=== PATIENT | male | born 1945 | race Native Hawaiian/Other Pacific Islander ===

== ENCOUNTER 2018-01-16 14:07 | Inpatient (IN) | payer MEDICARE, MEDICAID ==
[2018-01-16 14:52] LABS: BASO # 0.1 K/uL (0.0-0.2); BASO % 0.9 % (0.0-2.0); EOS # 0.9 K/uL (0.0-0.7); EOS % 8.4 % (0.0-4.0); HEMOGLOBIN 15.2 g/dL (12.0-18.0); LYMPH # 2.5 K/uL (1.0-4.3); LYMPH % 22.3 % (20.0-40.0); MEAN CELL VOLUME 90.3 fL (80.0-94.0); MEAN CORPUSCULAR HEMOGLOBIN 30.3 pg (27.0-31.0); MEAN CORPUSCULAR HGB CONC 33.5 g/dL (33.0-37.0); MONO # 0.9 K/uL (0.0-0.8); MONO % 7.7 % (0.0-10.0); NEUT # 6.8 K/uL (1.8-7.0); NEUT % 60.7 % (50.0-75.0); RBC 5.01 Mil/uL (4.40-5.90); RED CELL DISTRIBUTION WIDTH 13.4 % (11.5-14.5); WHITE BLOOD COUNT 11.2 K/uL (4.8-10.8)
[2018-01-16 15:11] LABS: ALB/GLOB RATIO 1.3 (1.0-2.1); ALBUMIN 4.1 g/dL (3.5-5.0); ALT/SGPT 29 U/L (21-72); AST/SGOT 22 U/L (17-59); BLOOD UREA NITROGEN 12 mg/dL (9-20); CALCIUM 9.2 mg/dl (8.6-10.4); GFR NON-AFRICAN AMERICAN > 60
--- NOTE | 2018-01-16 15:17 | C.PDOC ---
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 Trinh, has been having intermittent chest pain and exertional dyspnea/fatigue for the past 1 month. Patient is s/p recent outpatient stress test that was abnormal. He denies fever, abdominal pain, nausea/vomiting/diarrhea, dysuria, palpitations, headache, dizziness, visual changes. Pmhx of atrial fibrillation, HTN, hyperlpiidemia, COPD. Time Seen by Provider: 01/16/18 14:14 Chief Complaint (Nursing): Shortness Of Breath History Per: Patient, Family History/Exam Limitations: language barrier Onset/Duration Of Symptoms: Persistent Current Symptoms Are (Timing): Still Present Quality: Pressure, "Pain" Exacerbating Factor(s): Exertion Current Respiratory Medications: See Home Med List Severity: Mild Associated Symptoms: denies: Fever, Chills, Productive Cough, Dizziness Past Medical History Reviewed: Historical Data, Nursing Documentation, Vital Signs Vital Signs: Last Vital Signs Temp 97.4 F L 01/16/18 14:13 Pulse 106 H 01/16/18 14:13 Resp 26 H 01/16/18 14:33 BP 169/106 H 01/16/18 14:13 Pulse Ox 97 01/16/18 14:13 - Medical History PMH: Atrial Fibrillation, COPD, HTN, Hypercholesterolemia Family History: States: No Known Family Hx - Social History Hx Alcohol Use: No Hx Substance Use: No - Immunization History Hx Tetanus Toxoid Vaccination: No Hx Influenza Vaccination: Yes Hx Pneumococcal Vaccination: No Review Of Systems Constitutional: Positive for: Weakness (generalized). Negative for: Fever, Chills Cardiovascular: Positive for: Chest Pain. Negative for: Palpitations Respiratory: Positive for: Shortness of Breath, SOB with Excertion. Negative for: Cough Gastrointestinal: Negative for: Nausea, Vomiting, Abdominal Pain, Diarrhea Skin: Negative for: Rash Neurological: Negative for: Weakness, Numbness, Incoordination, Change in Speech, Headache, Dizziness Physical Exam - Physical Exam Appears: Well, Non-toxic, No Acute Distress, Other (speaking in full sentences ) Skin: Normal Color, Warm, Dry Eye(s): bilateral: Normal Inspection, PERRL, EOMI Oral Mucosa: Moist Cardiovascular: Rhythm Regular Respiratory: Rales (B/L bases R>L), No Rhonchi, No Wheezing Gastrointestinal/Abdominal: Normal Exam, Bowel Sounds, Soft, No Tenderness Extremity: Pedal Edema (+1 pitting edema B/L LEs), No Calf Tenderness Pulses: Left Dorsalis Pedis: Normal, Right Dorsalis Pedis: Normal Neurological/Psych: Oriented x3, Normal Speech, Normal Cognition ED Course And Treatment - Laboratory Results Result Diagrams: 01/19/18 07:23 01/19/18 07:23 ECG: Interpreted By Me, Viewed By Me (atrial fibrillation 83 bpm, normal axis, LVH, mild ST depressions II, III, aVF, V5-V6) ECG Interpretation: Abnormal O2 Sat by Pulse Oximetry: 97 (RA) Pulse Ox Interpretation: Normal - Radiology CXR: Interpreted by Me, Viewed By Me (no infiltrates, (+) B/L nodules) Progress Note: Blood work, EKG, CXR ordered and reviewed. Patient given PO ASA, IV Lasix, PO Cardizem (for mildly rapid A fib). CT chest ordered due to multiple lung nodules seen on CXR. - Physician Consult Information Physician Contacted: Lisset Schwartz Outcome Of Conversation: Discussed patient with hospitalist, agrees with admission to her service for chest pain, dyspnea, orthopnea, CHF exacerbation, abnormal stress test., lung nodules. 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 Critical Care Time - Critical Care Note Total Time (in mins): 35 Documented critical care: time excludes all time spent performing seperately billable procedures. Disposition - Disposition Disposition: HOSPITALIZED Disposition Time: 15:39 Condition: STABLE - Clinical Impression Clinical Impression: Acute exacerbation of CHF (congestive heart failure), Chest pain, Dyspnea, Orthopnea, Abnormal stress test, Lung nodules, Dyspnea Decision To Admit - Pt Status Changed To: Hospital Disposition Of: Inpatient - Admit Certification Admit to Inpatient:: After my assessment, the patient will require hospitalization for at least two midnights. This is because of the severity of symptoms shown, intensity of services needed, and/or the medical risk in this patient being treated as an outpatient. - InPatient: Physician Admission Certification: I certify that this patient requires 2 or more midnights of care for the following reason:: see notes - . Bed Request Type: Telemetry Admitting Physician: Lisset Schwartz Patient Diagnosis: Acute exacerbation of CHF (congestive heart failure), Chest pain, Dyspnea, Orthopnea, Abnormal stress test, Lung nodules, Dyspnea
[2018-01-16 15:24] LABS: B-TYPE NATRIURETIC PEPTIDE 1780 pg/mL (0-900); CK-MB 0.66 ng/mL (0.0-3.38)
[2018-01-16 15:26] LABS: INR 1.1; PROTHROMBIN TIME 11.7 SECONDS (9.7-12.2)
--- NOTE | 2018-01-16 17:10 | CP.PCM.HP ---
<Paulette Duvall - Last Filed: 01/16/18 19:39> History of Present Illness - History of Present Illness History of Present Illness: Admission H&P - Dr. Schwartz's Service HPI: 72 y/o male with PMHx of Afib, HTN, COPD, gout, PAD presents to the ED upon referral from Dr. Trinh after abnormal outpatient pharm stress test. ED records state he has been having exertional chest pain for 1 month, but upon questioning him, he said the pain has been present for 4 months. Patient states there is pain on both sides of his chest after 15 mins of walking that comes with palpitations. He walks regularly to go shopping and it is something that has been bothersome although it completely resolves after he sits down to rest. Denies associated diaphoresis when the pain comes. The pain is <5/10 (not much). Patient is unable to point where the pain is with one finger and motions to his chest with his whole hand. Denies radiating pain to back, arms, or neck. Patient has no leg pain/swelling, nausea/vomiting, diarrhea, recent travels, sick contacts. Of note, patient has been having headaches during the day of unknown bouts of time for the past month or so. He does not take special medications to relieve headaches; just his baby aspirin. But right now sitting in the emergency room he feels okay. 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 Patient accompanied by and teenage son. Their family speaks [place]. Only the son could speak Surinamese. Meds: theophilline 24 200/24h ER, colchicine 0.6 mg PO, omeprazole 40 mg PO, aspirin 81 mg, lisinopril 10 mg Allergies: NKDA PMD: Garethr Target Protection Specialist: Ziggy Present on Admission - Present on Admission Any Indicators Present on Admission: Yes Review of Systems - Constitutional Constitutional: As Per HPI Past Patient History - Past Social History Smoking Status: Former Smoker - CARDIAC Hx Atrial Fibrillation: Yes Hx Hypercholesterolemia: Yes Hx Hypertension: Yes - PULMONARY Hx Chronic Obstructive Pulmonary Disease (COPD): Yes - PSYCHIATRIC Hx Substance Use: No - SURGICAL HISTORY Hx Surgeries: No - ANESTHESIA Hx Anesthesia: No Hx Anesthesia Reactions: No Meds Allergies/Adverse Reactions: Allergies Allergy/AdvReac Type Severity Reaction Status Date / Time No Known Allergies Allergy Unverified 01/16/18 14:18 Physical Exam - Constitutional Appears: Well Additional comments: Elderly male resting in bed in no acute distress. - Head Exam Head Exam: ATRAUMATIC, NORMAL INSPECTION - Eye Exam Eye Exam: EOMI, Normal appearance Pupil Exam: NORMAL ACCOMODATION - ENT Exam ENT Exam: Mucous Membranes Moist, Normal Exam - Neck Exam Neck exam: Positive for: Normal Inspection. Negative for: Lymphadenopathy - Respiratory Exam Respiratory Exam: NORMAL BREATHING PATTERN Additional comments: faint crackles LLL - Cardiovascular Exam Cardiovascular Exam: Irregular Rhythm Additional comments: Chest pain is NOT reproducible upon palpation - GI/Abdominal Exam GI & Abdominal Exam: Normal Bowel Sounds, Soft. absent: Tenderness - Extremities Exam Extremities exam: Positive for: calf tenderness, normal inspection. Negative for: pedal edema, tenderness - Back Exam Back exam: NORMAL INSPECTION - Neurological Exam Neurological exam: Alert, Oriented x3 - Psychiatric Exam Psychiatric exam: Normal Affect, Normal Mood - Skin Skin Exam: Dry, Intact, Normal Color, Warm Results - Vital Signs Recent Vital Signs: Last Vital Signs Temp 98 F 01/16/18 15:51 Pulse 96 H 01/16/18 15:51 Resp 24 01/16/18 15:51 BP 160/106 H 01/16/18 15:51 Pulse Ox 98 01/16/18 15:51 - Labs Result Diagrams: 01/16/18 14:45 01/16/18 14:45 Labs: Laboratory Results - last 24 hr 01/16/18 01/16/18 01/16/18 14:45 14:45 14:45 WBC 11.2 H RBC 5.01 Hgb 15.2 Hct 45.3 MCV 90.3 MCH 30.3 MCHC 33.5 RDW 13.4 Plt Count 168 MPV 9.0 Neut % (Auto) 60.7 Lymph % (Auto) 22.3 [place] % (Auto) 7.7 Eos % (Auto) 8.4 H Baso % (Auto) 0.9 Neut # (Auto) 6.8 Lymph # (Auto) 2.5 [place] # (Auto) 0.9 H Eos # (Auto) 0.9 H Baso # (Auto) 0.1 PT 11.7 INR 1.1 APTT 36 H Sodium 142 Potassium 4.3 Chloride 104 Carbon Dioxide 27 Anion Gap 15 BUN 12 Creatinine 0.9 Est GFR ( Amer) > 60 Est GFR (Non-Af Amer) > 60 Random Glucose 79 Calcium 9.2 Total Bilirubin 0.6 AST 22 ALT 29 Alkaline Phosphatase 92 Total Creatine Kinase 50 L CK-MB (Mass) 0.66 Troponin I 0.0200 NT-Pro-B Natriuret Pep 1780 H Total Protein 7.2 Albumin 4.1 Globulin 3.1 Albumin/Globulin Ratio 1.3 Assessment & Plan - Assessment and Plan (Free Text) Assessment: 72 y/o male with PMHx of Afib, HTN, HLD, COPD, gout, and PAD presented to the ED due to abnormal stress test by Dr. Trinh. Patient is currently on med tele and hemodynamically stable. Acute coronary syndrome -ROMIs 9pm tonight and 4am 01/17 - trend trops and EKG then -pharm stress test abnormal (EF of 31% and recommends ECHO) -ECHO tomorrow AM on 01/17 -cardiac cath 3:30pm on 01/17 -NPO after breakfast 01/17 -tele monitor -aspirin 81 mg PO qd -stop lisinopril 2/2 abn'l EKG -proBNP, A1c, TSH, FT4 -lovenox 40 mg sq daily -cardio Dr. Trinh on consult Afib -CHADS: 3, HASBLED: 2 -will hold AC until after cath; d/w Dr. Trinh -start cardizem 30 mg PO QID (hold SBP < 100, HR < 60) -ECHO tomorrow AM on 01/17 -cardio Dr. Trinh on consult COPD -patient long time smoker and currently not on home meds for COPD -Spiriva 18 mcg inh qd -duonebs PRN Abnormal CXR -CT chest w/o contrast -pulm Dr. Gallego on consult PAD -aspirin 81 mg PO qd -SCDs contraindicated Gout -colchicine 0.3 mg PO qd HTN -patient with recent hx of headache; please monitor BP. BP not meeting HTN urgency/emergency criteria yet. Pending new meds for HTN mgmt as below: -start cardizem 30 mg PO QID -start losartan 50 mg PO qd Lipid disorder -lipid panel Ppx: lovenox 40 mg sq SCDs contrindicated PT/OT eval ordered Code: FULL *POC: Kalpana Zelaya () - only speaks [place]. But she can call Thy who speaks Sur[place]e at [phone]. dispo: pt with abnormal stress test with chesp pain and extensive cardiac risk factors for cardiac cath with cardiology case discussed with Dr. Efren Duvall, PGY-1 <Lisset Schwartz V - Last Filed: 01/18/18 20:07> Results - Vital Signs Recent Vital Signs: Last Vital Signs Temp 97.8 F 01/18/18 15:00 Pulse 85 01/18/18 17:58 Resp 20 01/18/18 15:00 BP 135/70 01/18/18 15:00 Pulse Ox 97 01/18/18 15:00 - Labs Result Diagrams: 01/18/18 08:39 01/18/18 08:39 Labs: Laboratory Results - last 24 hr 01/18/18 01/18/18 08:39 08:39 WBC 10.3 RBC 5.00 Hgb 15.3 Hct 45.6 MCV 91.2 MCH 30.7 MCHC 33.6 RDW 13.8 Plt Count 163 MPV 9.4 Sodium 144 Potassium 3.8 Chloride 107 Carbon Dioxide 26 Anion Gap 15 BUN 14 Creatinine 1.0 Est GFR ( Amer) > 60 Est GFR (Non-Af Amer) > 60 Random Glucose 103 Calcium 9.5 Phosphorus 3.7 Magnesium 1.9 Attending/Attestation - Attestation I have personally seen and examined this patient.: Yes I have fully participated in the care of the patient.: Yes I have reviewed all pertinent clinical information: Yes Notes (Text): This is late computer entry for 01/16/18. Patient seen, examined and case discussed with medical center manager. Hospitalist service covering for Dr. Quesada while he is away. patient with complaints of ongoing chest pain for the past 4 months, had an abnormal stress test with cardaic risk factors to come to the emergency room. Patient is mainly moroccan/cantonease/nigerien; resident is [place] speaker of cantonese able to elicted history. Admitting orders discussed with resident at time of admission. Discussed with cardiology, patient going for cardiac cath tomorrow, echo, aspirin, dvt ppx Lovenox; chemical anticoagulation for atrial fibrillation will be determine post cath. Patient noted to have abnormal chest xray; ordered for ct angio; provided gentle IV hydration post ct chest to prevent contrast induced nephropathy in light of cardiac cath. Assessment/Plan 72 y/o male with PMHx of Afib, HTN, HLD, COPD, gout, and PAD presented to the ED due to abnormal stress test by Dr. Trinh. Acute coronary syndrome Abnormal Stress Test Assessment/Plan cardiac risk factors: male, atrial fib, hypertension, lipid disorder, Pad, smoker -ROMIs 9pm tonight and 4am 01/17 - trend trops and EKG then -pharm stress test abnormal (EF of 31% and recommends ECHO) -ECHO tomorrow AM on 01/17 -cardiac cath 3:30pm on 01/17 -NPO after breakfast 01/17 -tele monitor -aspirin 81 mg PO qd -stop lisinopril 2/2 abn'l EKG -proBNP, A1c, TSH, FT4 -lovenox 40 mg sq daily -cardio Dr. Trinh on consult Atrial fibrillation -CHADS: 3, HASBLED: 2 -will hold AC until after cath; d/w Dr. Trinh -start cardizem 30 mg PO QID (hold SBP < 100, HR < 60) -ECHO tomorrow AM on 01/17 -cardio Dr. Trinh on consult History of COPD COPD -patient long time smoker and currently not on home meds for COPD; counselled at bedside to stop smoking -Spiriva 18 mcg inh qd -duonebs PRN Abnormal CXR -CT chest w/o contrast -pulm Dr. Gallego on consult PAD -aspirin 81 mg PO qd -SCDs contraindicated Gout -colchicine 0.3 mg PO qd HTN -patient with recent hx of headache; please monitor BP. BP not meeting HTN urgency/emergency criteria yet. Pending new meds for HTN mgmt as below: -start cardizem 30 mg PO QID -start losartan 50 mg PO qd (D/c francisca inhibitor given association with lung cancer Lipid disorder -lipid panel Ppx: lovenox 40 mg sq SCDs contrindicated PT/OT eval ordered Code: FULL *POC: Kalpana Zelaya () - only speaks [place]. But she can call Thy who speaks Surinamese at [phone].
--- NOTE | 2018-01-16 17:15 | RAD ---
Date of service: 01/16/2018 PROCEDURE: CHEST RADIOGRAPH, 1 VIEW HISTORY: SOB COMPARISON: None available. FINDINGS: LUNGS: Limited right perihilar infiltrate is difficult to exclude. None is seen the left. Likely bilateral calcified pleural plaques scattered at the mid superior lung zones. CT can confirm. PLEURA: No pneumothorax or pleural fluid seen. CARDIOVASCULAR: Prominent cardiac silhouette. No pulmonary vascular congestion. OSSEOUS STRUCTURES: No significant abnormalities. VISUALIZED UPPER ABDOMEN: Normal. OTHER FINDINGS: None. IMPRESSION: Limited right perihilar infiltrate difficult to exclude. Multifocal partially nodular pleural plaques suspected bilaterally. Follow-up chest CT with contrast recommended for greater characterization of all findings.
[2018-01-16] MEDS ORDERED: Metoprolol 1 mg/ml Inj IVP ONE (17:24)
[2018-01-16] MEDS ORDERED: Iodixanol 320 MG/ML 100 ML BOTTLE IV ONE (17:42)
[2018-01-16] MEDS ORDERED: Sodium Chloride 0.9% 1,000 ML IV SCH (17:45)
--- NOTE | 2018-01-16 18:00 | CT ---
Date of service: 01/16/2018 PROCEDURE: CT Chest with contrast (Pulmonary Angiogram) HISTORY: DYSPNEA, LUNG NODULES, CHEST PAIN COMPARISON: None available. TECHNIQUE: Axial computed tomography images were obtained of the chest in the pulmonary arterial phase of enhancement. Coronal and sagittal reformatted images were created and reviewed. Intravenous contrast dose: Visipaque 320, 100 cc Radiation dose: Total exam DLP = 275.43 mGy-cm. This CT exam was performed using one or more of the following dose reduction techniques: Automated exposure control, adjustment of the mA and/or kV according to patient size, and/or use of iterative reconstruction technique. FINDINGS: PULMONARY ARTERIES: Unremarkable. No pulmonary embolism. AORTA: No acute findings. No thoracic aortic aneurysm. Calcific atherosclerotic changes are seen related to the thoracic aorta. LUNGS: Biapical partially calcified masses are identified suggestive of gross granulomatous disease affecting the bilateral upper lobes with limited similar changes present at the right lower lobe superior segment. A few punctate calcified granulomata are seen at the right lower lobe limited bronchiectasis seen in the right middle lobe associated with a large granuloma. Mild fibrotic changes are appreciate the bilateral pulmonary apices. No central airway lesion identified. PLEURAL SPACES: Unremarkable. No effusion or pneumothorax. HEART: Unremarkable. No cardiomegaly. No significant pericardial effusion. LYMPH NODES: No lymphadenopathy. BONES, CHEST WALL: Diffuse osteopenia suggests osteoporosis. OTHER FINDINGS: Unremarkable. IMPRESSION: 1. No CT evidence of pulmonary embolus. 2. Gross granulomatous changes bilateral upper lobes and right lower lobe superior segment. 3. Limited bronchiectasis right middle lobe.
[2018-01-16] MEDS: Enoxaparin 40 mg Syringe SC SCH (19:33)
[2018-01-16 19:39] LABS: CK-MB 0.65 ng/mL (0.0-3.38); TROPONIN I 0.02 ng/mL (0.00-0.120)
--- NOTE | 2018-01-16 21:19 | CP.PCM.CON ---
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 Patient accompanied by and teenage son. Their family speaks [place]. Only the son could speak Latvian. Meds: theophilline 24 200/24h ER, colchicine 0.6 mg PO, omeprazole 40 mg PO, aspirin 81 mg, lisinopril 10 mg Allergies: NKDA PMD: [place] Present on Admission - Present on Admission Any Indicators Present on Admission: Yes Review of Systems - Constitutional Constitutional: As Per HPI Meds Allergies/Adverse Reactions: Allergies Allergy/AdvReac Type Severity Reaction Status Date / Time No Known Allergies Allergy Unverified 01/16/18 14:18 Physical Exam - Constitutional Appears: Well Additional comments: Elderly male resting in bed in no acute distress. - Head Exam Head Exam: ATRAUMATIC, NORMAL INSPECTION - Eye Exam Eye Exam: EOMI, Normal appearance Pupil Exam: NORMAL ACCOMODATION - ENT Exam ENT Exam: Mucous Membranes Moist, Normal Exam - Neck Exam Neck exam: Positive for: Normal Inspection. Negative for: Lymphadenopathy - Respiratory Exam Respiratory Exam: NORMAL BREATHING PATTERN Additional comments: faint crackles LLL - Cardiovascular Exam Cardiovascular Exam: Irregular Rhythm Additional comments: Chest pain is NOT reproducible upon palpation - GI/Abdominal Exam GI & Abdominal Exam: Normal Bowel Sounds, Soft. absent: Tenderness - Extremities Exam Extremities exam: Positive for: calf tenderness, normal inspection. Negative for: pedal edema, tenderness - Back Exam Back exam: NORMAL INSPECTION - Neurological Exam Neurological exam: Alert, Oriented x3 - Psychiatric Exam Psychiatric exam: Normal Affect, Normal Mood - Skin Skin Exam: Dry, Intact, Normal Color, Warm Assessment & Plan - Assessment and Plan (Free Text) Assessment: 72 y/o male with PMHx of Afib, HTN, HLD, COPD, gout, and PAD presented to the ED due to abnormal stress test by Dr. Trinh. Patient is currently on med tele and hemodynamically stable. Acute coronary syndrome -ROMIs 9pm tonight and 4am 01/17 - trend trops and EKG then -pharm stress test abnormal (EF of 31% and recommends ECHO) -ECHO tomorrow AM on 01/17 -cardiac cath 3:30pm on 01/17 -NPO after breakfast 01/17 -tele monitor -aspirin 81 mg PO qd -stop lisinopril 2/2 abn'l EKG -proBNP, A1c, TSH, FT4 -lovenox 40 mg sq daily Afib -CHADS: 3, HASBLED: 2 -will hold AC until after cath; -start cardizem 30 mg PO QID (hold SBP < 100, HR < 60) -ECHO tomorrow AM on 01/17 COPD -patient long time smoker and currently not on home meds for COPD -Spiriva 18 mcg inh qd -duonebs PRN Abnormal CXR -CT chest w/o contrast -pulm Dr. Gallego on consult PAD -aspirin 81 mg PO qd -SCDs contraindicated Gout -colchicine 0.3 mg PO qd HTN -patient with recent hx of headache; please monitor BP. BP not meeting HTN urgency/emergency criteria yet. Pending new meds for HTN mgmt as below: -start cardizem 30 mg PO QID -start losartan 50 mg PO qd Lipid disorder -lipid panel Ppx: lovenox 40 mg sq SCDs contrindicated PT/OT eval ordered Code: FULL *POC: Kalpana Zelaya () - only speaks [place]. But she can call Thy who speaks Latvian at [phone]. dispo: pt with abnormal stress test with chesp pain and extensive cardiac risk factors for cardiac cath with cardiology Past Patient History - Past Medical History & Family History Past Medical History?: Yes - Past Social History Smoking Status: Former Smoker - CARDIAC Hx Atrial Fibrillation: Yes Hx Hypercholesterolemia: Yes Hx Hypertension: Yes - PULMONARY Hx Chronic Obstructive Pulmonary Disease (COPD): Yes - MUSCULOSKELETAL/RHEUMATOLOGICAL Hx Falls: No - PSYCHIATRIC Hx Substance Use: No - SURGICAL HISTORY Hx Surgeries: No - ANESTHESIA Hx Anesthesia: No Hx Anesthesia Reactions: No Meds Allergies/Adverse Reactions: Allergies Allergy/AdvReac Type Severity Reaction Status Date / Time No Known Allergies Allergy Unverified 01/16/18 14:18 - Medications Medications: Current Medications Albuterol/Ipratropium (Duoneb 3 Mg/0.5 Mg (3 Ml) Ud) 3 ml INH RQ6 PRN PRN Reason: Shortness of Breath Stop: 01/22/18 17:46 Aspirin (Aspirin Chewable) 81 mg PO DAILY [facility] Diltiazem HCl (Cardizem) 30 mg PO QID [facility] Last Admin: 01/16/18 19:33 Dose: 30 mg Diltiazem HCl (Cardizem) 30 mg PO QID [facility] Enoxaparin Sodium (Lovenox) 40 mg SC DAILY [facility] Last Admin: 01/16/18 19:33 Dose: 40 mg Furosemide (Lasix) 20 mg IVP DAILY [facility] Sodium Chloride (Sodium Chloride 0.9%) 1,000 mls @ 50 mls/hr IV .Q20H [facility] Stop: 01/17/18 05:46 Last Admin: 01/16/18 19:32 Dose: 50 mls/hr Losartan Potassium (Cozaar) 50 mg PO DAILY [facility] Stop: 01/22/18 20:00 Last Admin: 01/16/18 19:33 Dose: 50 mg Nicotine (Nicoderm Cq) 1 patch TD DAILY [facility] Last Admin: 01/16/18 19:33 Dose: 1 patch Pantoprazole Sodium (Protonix Ec Tab) 40 mg PO DAILY [facility] Stop: 01/22/18 10:[address] [place] (Spiriva) 18 mcg INH RQ24 [facility] Tiotropium [employer] [place] (Spiriva) 18 mcg INH RQ24 [facility] Stop: 01/22/18 08:00 Results - Vital Signs Recent Vital Signs: Last Vital Signs Temp 98.0 F 01/16/18 19:53 Pulse 75 01/16/18 19:53 Resp 20 01/16/18 19:53 BP 155/91 H 01/16/18 19:53 Pulse Ox 96 01/16/18 19:53 - Labs Result Diagrams: 01/16/18 14:45 01/16/18 14:45 Labs: Laboratory Results - last 24 hr 01/16/18 01/16/18 01/16/18 14:45 14:45 14:45 WBC 11.2 H RBC 5.01 Hgb 15.2 Hct 45.3 MCV 90.3 MCH 30.3 MCHC 33.5 RDW 13.4 Plt Count 168 MPV 9.0 Neut % (Auto) 60.7 Lymph % (Auto) 22.3 [place] % (Auto) 7.7 Eos % (Auto) 8.4 H Baso % (Auto) 0.9 Neut # (Auto) 6.8 Lymph # (Auto) 2.5 [place] # (Auto) 0.9 H Eos # (Auto) 0.9 H Baso # (Auto) 0.1 PT 11.7 INR 1.1 APTT 36 H Sodium 142 Potassium 4.3 Chloride 104 Carbon Dioxide 27 Anion Gap 15 BUN 12 Creatinine 0.9 Est GFR ( Amer) > 60 Est GFR (Non-Af Amer) > 60 Random Glucose 79 Calcium 9.2 Total Bilirubin 0.6 AST 22 ALT 29 Alkaline Phosphatase 92 Total Creatine Kinase 50 L CK-MB (Mass) 0.66 Troponin I 0.0200 NT-Pro-B Natriuret Pep 1780 H Total Protein 7.2 Albumin 4.1 Globulin 3.1 Albumin/Globulin Ratio 1.3 Theophylline 01/16/18 01/16/18 19:07 19:07 WBC RBC Hgb Hct MCV MCH MCHC RDW Plt Count MPV Neut % (Auto) Lymph % (Auto) [place] % (Auto) Eos % (Auto) Baso % (Auto) Neut # (Auto) Lymph # (Auto) [place] # (Auto) Eos # (Auto) Baso # (Auto) PT INR APTT Sodium Potassium Chloride Carbon Dioxide Anion Gap BUN Creatinine Est GFR ( Amer) Est GFR (Non-Af Amer) Random Glucose Calcium Total Bilirubin AST ALT Alkaline Phosphatase Total Creatine Kinase 57 CK-MB (Mass) 0.65 Troponin I 0.0200 NT-Pro-B Natriuret Pep Total Protein Albumin Globulin Albumin/Globulin Ratio Theophylline < 1.0 L
[2018-01-17 07:18] LABS: BASO # 0.1 K/uL (0.0-0.2); BASO % 0.7 % (0.0-2.0); EOS % 12.5 % (0.0-4.0); HEMOGLOBIN 15.3 g/dL (12.0-18.0); LYMPH # 2.6 K/uL (1.0-4.3); LYMPH % 33.2 % (20.0-40.0); MEAN CELL VOLUME 90.6 fL (80.0-94.0); MEAN CORPUSCULAR HEMOGLOBIN 30.7 pg (27.0-31.0); MEAN CORPUSCULAR HGB CONC 33.9 g/dL (33.0-37.0); MEAN PLATELET VOLUME 9.7 fL (7.2-11.7); MONO # 0.8 K/uL (0.0-0.8); MONO % 9.6 % (0.0-10.0); NEUT # 3.5 K/uL (1.8-7.0); NRBC % 0.1 % (0.0-2.0); RBC 4.98 Mil/uL (4.40-5.90); RED CELL DISTRIBUTION WIDTH 13.7 % (11.5-14.5); WHITE BLOOD COUNT 7.9 K/uL (4.8-10.8)
[2018-01-17 07:40] LABS: CK-MB 0.76 ng/mL (0.0-3.38); TROPONIN I 0.022 ng/mL (0.00-0.120)
[2018-01-17] MEDS: Tiotropium 18 mcg Cap For Inhalation INH SCH (07:50)
[2018-01-17] MEDS: Albuterol-Ipratrop 3 mg / 0.5 (3 ml) UD INH PRN (07:55)
[2018-01-17] MEDS ORDERED: Tiotropium 18 mcg Cap For Inhalation INH SCH (08:00)
[2018-01-17] MEDS: Enoxaparin 40 mg Syringe SC SCH (09:31)
[2018-01-17] MEDS: Pantoprazole 40 mg EC Tab PO SCH (09:32)
--- NOTE | 2018-01-17 12:45 | CARD ---
APPROVED REPORT Date of service: 01/17/2018 EKG Measurement Heart [id number] <Conclusion> Atrial fibrillation Voltage criteria for left ventricular hypertrophy Nonspecific ST and T wave abnormality Abnormal ECG
--- NOTE | 2018-01-17 12:47 | CARD ---
APPROVED REPORT Date of service: 01/16/2018 EKG Measurement Heart [id number] <Conclusion> Atrial fibrillation Voltage criteria for left ventricular hypertrophy Nonspecific ST and T wave abnormality Prolonged QT Abnormal ECG
--- NOTE | 2018-01-17 12:48 | CARD ---
APPROVED REPORT Date of service: 01/16/2018 EKG Measurement Heart [id number] <Conclusion> Atrial fibrillation with rapid ventricular response Voltage criteria for left ventricular hypertrophy Nonspecific ST and T wave abnormality Abnormal ECG
--- NOTE | 2018-01-17 14:28 | CP.PCM.PN ---
Addendum entered and electronically signed by Paulette Duvall DO 01/17/18 15:17: Clarification on diagnoses: -"COPD" = "chronic COPD" due to patient's long time smoking -Patient also with possible diagnosis of HFpEF (systolic CHF) due to elevated proBNP and approx EF = 31% on stress test. However, will need formal ECHO results to be read before labeling the diagnosis. Original Note: <Paulette Duvall - Last Filed: 01/17/18 14:25> Subjective - Date & Time of Evaluation Date of Evaluation: 01/17/18 Time of Evaluation: 14:25 - Subjective Subjective: Patient seen and examined at bedside this morning. He still endorses exertional chest pain. He is aware of cardiac cath and NPO after breakfast. Watching [place] in no acute distress. Objective - Vital Signs/Intake and Output Vital Signs (last 24 hours): Temp Pulse Resp BP Pulse Ox 97.4 F L 64 20 157/79 H 96 01/17/18 07:00 01/17/18 14:01 01/17/18 07:00 01/17/18 14:01 01/17/18 07:00 Intake and Output: 01/17/18 01/17/18 06:59 18:59 Intake Total 200 Balance 200 - Medications Medications: Current Medications Albuterol/Ipratropium (Duoneb 3 Mg/0.5 Mg (3 Ml) Ud) 3 ml INH RQ6 PRN PRN Reason: Shortness of Breath Stop: 01/22/18 17:46 Last Admin: 01/17/18 07:55 Dose: 3 ml Aspirin (Aspirin Chewable) 81 mg PO DAILY [facility] Last Admin: 01/17/18 09:32 Dose: 81 mg Diltiazem HCl (Cardizem) 30 mg PO QID [facility] Last Admin: 01/17/18 14:10 Dose: 30 mg Enoxaparin Sodium (Lovenox) 40 mg SC DAILY [facility] Last Admin: 01/17/18 09:31 Dose: 40 mg Furosemide (Lasix) 20 mg IVP DAILY [facility] Losartan Potassium (Cozaar) 50 mg PO DAILY [facility] Stop: 01/22/18 20:00 Last Admin: 01/17/18 09:32 Dose: 50 mg Nicotine (Nicoderm Cq) 1 patch TD DAILY [facility] Last Admin: 01/17/18 09:32 Dose: 1 patch Pantoprazole Sodium (Protonix Ec Tab) 40 mg PO DAILY [facility] Stop: 01/22/18 10:00 Last Admin: 01/17/18 09:32 Dose: 40 mg Pneumococcal Polyvalent Vaccine (Pneumovax 23 Vaccine) 0.5 ml IM .ONCE ONE Stop: 01/18/18 12:01 Tiotropium [place] (Spiriva) 18 mcg INH RQ24 [facility] Last Admin: 01/17/18 07:50 Dose: 18 mcg - Labs Labs: 01/17/18 06:58 01/16/18 14:45 PT 11.7 SECONDS (9.7-12.2) 01/16/18 14:45 INR 1.1 01/16/18 14:45 APTT 36 SECONDS (21-34) H 01/16/18 14:45 - Constitutional Appears: Well, Non-toxic, No Acute Distress - Head Exam Head Exam: ATRAUMATIC, NORMAL INSPECTION - Eye Exam Eye Exam: EOMI, Normal appearance - Neck Exam Neck Exam: Normal Inspection Additional comments: negative hepatojugular reflex - Respiratory Exam Respiratory Exam: Clear to Ausculation Bilateral, NORMAL BREATHING PATTERN - Cardiovascular Exam Cardiovascular Exam: Irregular Rhythm - GI/Abdominal Exam GI & Abdominal Exam: Soft, Normal Bowel Sounds - Back Exam Additional comments: negative for tibial edema - Neurological Exam Neurological Exam: Alert, Awake, Oriented x3 - Psychiatric Exam Psychiatric exam: Normal Affect, Normal Mood - Skin Skin Exam: Dry, Intact, Normal Color, Warm Assessment and Plan - Assessment and Plan (Free Text) Assessment: 72 y/o male with PMHx of Afib, HTN, HLD, COPD, gout, and PAD presented on 01/16 to the ED due to abnormal stress test by Dr. Trinh. Patient is currently on med tele and hemodynamically stable. Acute coronary syndrome -ROMIs 9pm and 4am negative -outpatient pharm stress test abnormal (EF of 31% and recommends ECHO) -pending ECHO read from this morning -pending cardiac cath 3:30pm today -NPO after breakfast -tele monitor -aspirin 81 mg PO qd -stop lisinopril 2/2 abn'l EKG -proBNP abn'l 1220 (H) -pending A1c -TSH and FT4 wnl -lovenox 40 mg sq daily -cardio Dr. Trinh on consult Afib -CHADS: 3, HASBLED: 2 -will hold AC until after cath; d/w Dr. Trinh -started new med cardizem 30 mg PO QID (hold SBP < 100, HR < 60) -cardio Dr. Trinh on consult COPD -patient long time smoker and currently not on home meds for COPD -Spiriva 18 mcg inh qd -duonebs PRN -Dr. Gallego consulted due to abn'l CT chest, which was ordered due to abn'l CXR from the ED. CT 01/12 showed "gross granulomatous changes" in his upper lobes and RLL superior segment -pending Dr. Gallego (pul) recs PAD -aspirin 81 mg PO qd -SCDs contraindicated Gout -colchicine 0.3 mg PO qd HTN -patient with recent hx of headache; please monitor BP. BP not meeting HTN urgency/emergency criteria yet. Pending new meds for HTN mgmt as below: -start cardizem 30 mg PO QID -start losartan 50 mg PO qd Lipid disorder -lipid panel with chol 207 H, LDL 153H -crestor 10 mg PO Ppx: lovenox 40 mg sq SCDs contrindicated PT/OT eval ordered Code: FULL *POC: Kalpana Zelaya () - only speaks [place]ivian. But she can call Thy who speaks Dominican at [phone]. case discussed with Dr. Inna Duvall, PGY-1 <Cristina Keith - Last Filed: 01/23/18 21:05> Objective - Vital Signs/Intake and Output Vital Signs (last 24 hours): Temp Pulse Resp BP Pulse Ox 98.4 F 71 20 146/77 97 01/19/18 07:20 01/19/18 10:44 01/19/18 07:20 01/19/18 10:44 01/23/18 20:14 - Labs Labs: 01/19/18 07:23 01/19/18 07:23 PT 11.7 SECONDS (9.7-12.2) 01/16/18 14:45 INR 1.1 01/16/18 14:45 APTT 36 SECONDS (21-34) H 01/16/18 14:45 Attending/Attestation - Attestation I have personally seen and examined this patient.: Yes I have fully participated in the care of the patient.: Yes I have reviewed all pertinent clinical information, including history, physical exam and plan: Yes Notes (Text): Patient was seen and examined with the resident Assessment and the plan discussed in detail I agree with the documentation
--- NOTE | 2018-01-17 16:00 | CP.PCM.CON ---
History of Present Illness - History of Present Illness History of Present Illness: Patient is a 72 y/o [place] male with PMHx of COPD, Afib, HTN, gout, and PAD, who presented to the ED on 01/16/[address] Trinh after abnormal outpatient stress test. He states he has been having heavy breathing, fatigue, and exertional chest pain for the past 4 months. He states he has had "lung disease" since the and has been following up with a condominium property manager (? name) every 6 months for the past 10 years, but has not been taking any medications regarding his COPD. Currently, patient complains of SOB, which worsens when lying down and walking for 10-15 min, chest congestion, and dry cough. Denies leg pain/swelling, fever, recent travels, sick contacts. ROS: as per HPI PMD: Dr. Quesada Desk [employer] Publisher: Dr. Trinh PMHx: COPD, Afib, HTN, gout, PAD PSHx: denies FHx: denies Allergies: denies; NKDA Meds: theophylline 34 200/24h ER, colchicine 0.6mg, omeprazole 40mg, aspirin 81mg, lisinopril 10mg Social: smokes 10 cig/day for the past 40-50 yrs., quit 1 month ago; drinks 2-3 bottles of beer on weekends; denies illicit drug use; lives with and son; [place]-speaking only. CXR (01/16): limited right perihilar infiltrate difficult to exclude; multifocal partially nodular pleural plaques suspected bilaterally; follow-up chest CT with contrast recommended for greater characterization of all findings. CT chest (01/17): -No CT evidence of pulmonary embolus; gross granulomatous changes bilateral upper lobes and right lower lobe superior segment; limited bronchiectasis right middle lobe. Past Patient History - Past Medical History & Family History Past Medical History?: Yes - Past Social History Smoking Status: Former Smoker - CARDIAC Hx Hypercholesterolemia: Yes Hx Hypertension: Yes - PULMONARY Hx Chronic Obstructive Pulmonary Disease (COPD): Yes - MUSCULOSKELETAL/RHEUMATOLOGICAL Hx Falls: No - PSYCHIATRIC Hx Substance Use: No - SURGICAL HISTORY Hx Surgeries: No - ANESTHESIA Hx Anesthesia: No Hx Anesthesia Reactions: No Meds Allergies/Adverse Reactions: Allergies Allergy/AdvReac Type Severity Reaction Status Date / Time No Known Allergies Allergy Unverified 01/16/18 14:18 - Medications Medications: Current Medications Albuterol/Ipratropium (Duoneb 3 Mg/0.5 Mg (3 Ml) Ud) 3 ml INH RQ6 PRN PRN Reason: Shortness of Breath Stop: 01/22/18 17:46 Last Admin: 01/17/18 07:55 Dose: 3 ml Aspirin (Aspirin Chewable) 81 mg PO DAILY [facility] Last Admin: 01/17/18 09:32 Dose: 81 mg Diltiazem HCl (Cardizem) 30 mg PO QID [facility] Last Admin: 01/17/18 14:10 Dose: 30 mg Enoxaparin Sodium (Lovenox) 40 mg SC DAILY [facility] Last Admin: 01/17/18 09:31 Dose: 40 mg Furosemide (Lasix) 20 mg IVP DAILY [facility] Losartan Potassium (Cozaar) 50 mg PO DAILY [facility] Stop: 01/22/18 20:00 Last Admin: 01/17/18 09:32 Dose: 50 mg Nicotine (Nicoderm Cq) 1 patch TD DAILY [facility] Last Admin: 01/17/18 09:32 Dose: 1 patch Pantoprazole Sodium (Protonix Ec Tab) 40 mg PO DAILY [facility] Stop: 01/22/18 10:00 Last Admin: 01/17/18 09:32 Dose: 40 mg Pneumococcal Polyvalent Vaccine (Pneumovax 23 Vaccine) 0.5 ml IM .ONCE ONE Stop: 01/18/18 12:01 Tiotropium [place] (Spiriva) 18 mcg INH RQ24 [facility] Last Admin: 01/17/18 07:50 Dose: 18 mcg Physical Exam - Head Exam Head Exam: ATRAUMATIC - Eye Exam Eye Exam: Normal appearance - ENT Exam ENT Exam: Mucous Membranes Moist - Neck Exam Neck exam: Positive for: Normal Inspection - Respiratory Exam Respiratory Exam: Clear to Auscultation Bilateral - Cardiovascular Exam Cardiovascular Exam: REGULAR RHYTHM - GI/Abdominal Exam GI & Abdominal Exam: Normal Bowel Sounds, Soft - Extremities Exam Extremities exam: Positive for: normal inspection Results - Vital Signs Recent Vital Signs: Last Vital Signs Temp 98.0 F 01/17/18 15:00 Pulse 68 01/17/18 15:00 Resp 20 01/17/18 15:00 BP 153/86 H 01/17/18 15:00 Pulse Ox 98 01/17/18 15:00 - Labs Result Diagrams: 01/17/18 06:58 10/28/18 14:45 Labs: Laboratory Results - last 24 hr 01/16/18 01/16/18 01/17/18 19:07 19:07 06:58 WBC RBC Hgb Hct MCV MCH MCHC RDW Plt Count MPV Neut % (Auto) Lymph % (Auto) [place] % (Auto) Eos % (Auto) Baso % (Auto) Neut # (Auto) Lymph # (Auto) [place] # (Auto) Eos # (Auto) Baso # (Auto) Hemoglobin A1c Total Creatine Kinase 57 46 L CK-MB (Mass) 0.65 0.76 Troponin I 0.0200 0.0220 NT-Pro-B Natriuret Pep 1220 H Triglycerides 135 Cholesterol 207 H LDL Cholesterol Direct 153 H HDL Cholesterol 42 Free T4 TSH 3rd Generation 0.47 Theophylline < 1.0 L 01/17/18 01/17/18 01/17/18 06:58 06:58 06:58 WBC 7.9 RBC 4.98 Hgb 15.3 Hct 45.1 MCV 90.6 MCH 30.7 MCHC 33.9 RDW 13.7 Plt Count 164 MPV 9.7 Neut % (Auto) 44.0 L Lymph % (Auto) 33.2 [place] % (Auto) 9.6 Eos % (Auto) 12.5 H Baso % (Auto) 0.7 Neut # (Auto) 3.5 Lymph # (Auto) 2.6 [place] # (Auto) 0.8 Eos # (Auto) 1.0 H Baso # (Auto) 0.1 Hemoglobin A1c 5.5 Total Creatine Kinase CK-MB (Mass) Troponin I NT-Pro-B Natriuret Pep Triglycerides Cholesterol LDL Cholesterol Direct HDL Cholesterol Free T4 1.34 TSH 3rd Generation Theophylline Assessment & Plan (1) Multiple lung nodules Status: Acute Comment: granulomatous changes. Will obtain records from patient condominium property manager (2) COPD (chronic obstructive pulmonary disease) Status: Acute Comment: nnebulizer treatment
[2018-01-17] MEDS ORDERED: Midazolam 2 MG/2 ML VIAL ONE (17:02)
[2018-01-17] MEDS ORDERED: Verapamil 2 ML ONE (17:02)
[2018-01-17] MEDS ORDERED: Iodixanol 320 MG/ML 100 ML BOTTLE IV ONE (17:25)
--- NOTE | 2018-01-17 18:20 | CP.PCM.PN ---
Subjective - Date & Time of Evaluation Date of Evaluation: 01/17/18 Time of Evaluation: 18:22 - Subjective Subjective: Patient s/p cath L main: Patent LAD: Mid 85%, Large Diag 80% L Cx: Distal 70% RCA: Distal 85% EF: 40%, anterolateral hypokinesis Will d/w Family tomorrow CABG Vs.Multi vessel PCI Objective - Vital Signs/Intake and Output Vital Signs (last 24 hours): Temp Pulse Resp BP Pulse Ox 98.0 F 68 20 153/86 H 98 01/17/18 15:00 01/17/18 15:00 01/17/18 15:00 01/17/18 15:00 01/17/18 15:00 Intake and Output: 01/17/18 01/17/18 06:59 18:59 Intake Total 200 375 Balance 200 375 - Medications Medications: Current Medications Albuterol/Ipratropium (Duoneb 3 Mg/0.5 Mg (3 Ml) Ud) 3 ml INH RQ6 PRN PRN Reason: Shortness of Breath Stop: 01/22/18 17:46 Last Admin: 01/17/18 07:55 Dose: 3 ml Aspirin (Aspirin Chewable) 81 mg PO DAILY [facility] Last Admin: 01/17/18 09:32 Dose: 81 mg Diltiazem HCl (Cardizem) 30 mg PO QID [facility] Last Admin: 01/17/18 14:10 Dose: 30 mg Enoxaparin Sodium (Lovenox) 40 mg SC DAILY [facility] Last Admin: 01/17/18 09:31 Dose: 40 mg Losartan Potassium (Cozaar) 50 mg PO DAILY [facility] Stop: 01/22/18 20:00 Last Admin: 01/17/18 09:32 Dose: 50 mg Nicotine (Nicoderm Cq) 1 patch TD DAILY [facility] Last Admin: 01/17/18 09:32 Dose: 1 patch Pantoprazole Sodium (Protonix Ec Tab) 40 mg PO DAILY [facility] Stop: 01/22/18 10:00 Last Admin: 01/17/18 09:32 Dose: 40 mg Pneumococcal Polyvalent Vaccine (Pneumovax 23 Vaccine) 0.5 ml IM .ONCE ONE Stop: 01/18/18 12:01 Tiotropium [place] (Spiriva) 18 mcg INH RQ24 [facility] Last Admin: 01/17/18 07:50 Dose: 18 mcg - Labs Labs: 01/17/18 06:58 01/16/18 14:45 PT 11.7 SECONDS (9.7-12.2) 01/16/18 14:45 INR 1.1 01/16/18 14:45 APTT 36 SECONDS (21-34) H 01/16/18 14:45
--- NOTE | 2018-01-17 20:35 | CARD ---
APPROVED REPORT Date of service: 01/17/2018 EXAM: Two-dimensional and M-mode echocardiogram with Doppler and color Doppler. Other Information Quality : GoodRhythm : Atrial Fibrillation INDICATION Abnormal EKG/Arrhythmia COPD RISK FACTORS Hypertension 2D DIMENSIONS IVSd1.0 (0.7-1.1cm)LVDd4.6 (3.9-5.9cm) PWd1.1 (0.7-1.1cm)LA Lwcujd87 (18-58mL) LVDs3.4 (2.5-4.0cm)FS (%) 25.7 % LVEF (%)50.7 (>50%)LVEF (Farmer's)41.76 % M-Mode DIMENSIONS Left Atrium (MM)4.53 (2.5-4.0cm)IVSd0.90 (0.7-1.1cm) Aortic Root3.58 (2.2-3.7cm)LVDd4.80 (4.0-5.6cm) Aortic Cusp Exc.2.35 (1.5-2.0cm)PWd0.96 (0.7-1.1cm) FS (%) 19 %LVDs3.89 (2.0-3.8cm) LVEF (%)45 (>50%) Aortic Valve AI P 1/2 [id number] Mitral Valve MV E Zknfyktx563.5cm/sMV A Zaxduglz41.1cm/sE/A ratio3.8 CVCG464.24 cm/s TDI Lateral E' Peak V7.51cm/sMedial E' Peak V5.19cm/sE/Lateral E'13.6 E/Medial E'19.7 Tricuspid Valve TR Peak Svaajsjj165nb/sTR Peak Gr.54pgWaMWID41wwZl LEFT VENTRICLE The left ventricle is normal size. There is borderline concentric left ventricular hypertrophy. Left ventricle systolic function is mildly impaired. The Ejection Fraction is 50-55%. There is normal LV segmental wall motion. Transmitral Doppler flow pattern is Grade I-abnormal relaxation pattern. A Fib, LVEDP not elevated. There is no ventricular septal defect visualized. RIGHT VENTRICLE The right ventricle is normal size. The right ventricular systolic function is normal. ATRIA The left atrium is mildly dilated. The right atrium size is normal. AORTIC VALVE The aortic valve is mildly sclerotic. The aortic valve is tri-cuspid. There is mild aortic regurgitation. There is no aortic valvular stenosis. MITRAL VALVE Mitral annular calcification is mild. There is no evidence of mitral valve prolapse. Mitral regurgitation is mild. ERO 0.2 TRICUSPID VALVE The tricuspid valve is normal in structure. There is trace tricuspid regurgitation. Right ventricular systolic pressure is estimated at 30-40 mmHg. There is mild pulmonary hypertension. PULMONIC VALVE The pulmonary valve is normal in structure. There is trace pulmonic valvular regurgitation. GREAT VESSELS The aortic root is normal in size. The ascending aorta is normal in size. The IVC is normal in size and collapses >50% with inspiration. PERICARDIAL EFFUSION There is no pericardial effusion. <Conclusion> There is borderline concentric left ventricular hypertrophy. Left ventricle systolic function is mildly impaired. The Ejection Fraction is 50-55%. Transmitral Doppler flow pattern is Grade I-abnormal relaxation pattern. A Fib, LVEDP not elevated. There is mild aortic regurgitation. Mitral regurgitation is mild. ERO 0.2 There is mild pulmonary hypertension.
[2018-01-18] MEDS: Albuterol-Ipratrop 3 mg / 0.5 (3 ml) UD INH PRN (07:15)
[2018-01-18] MEDS: Fluticasone-Vilanterol 100/25mcg Diskus INH SCH (07:15)
[2018-01-18] MEDS: Tiotropium 18 mcg Cap For Inhalation INH SCH (07:15)
[2018-01-18 08:47] LABS: HEMOGLOBIN 15.3 g/dL (12.0-18.0); MEAN CELL VOLUME 91.2 fL (80.0-94.0); MEAN CORPUSCULAR HEMOGLOBIN 30.7 pg (27.0-31.0); MEAN CORPUSCULAR HGB CONC 33.6 g/dL (33.0-37.0); MEAN PLATELET VOLUME 9.4 fL (7.2-11.7); RED CELL DISTRIBUTION WIDTH 13.8 % (11.5-14.5); WHITE BLOOD COUNT 10.3 K/uL (4.8-10.8)
[2018-01-18 09:00] LABS: BLOOD UREA NITROGEN 14 mg/dL (9-20); CALCIUM 9.5 mg/dl (8.6-10.4); GFR NON-AFRICAN AMERICAN > 60
[2018-01-18] MEDS: Pantoprazole 40 mg EC Tab PO SCH (09:55)
[2018-01-18] MEDS: Enoxaparin 40 mg Syringe SC SCH (09:57)
--- NOTE | 2018-01-18 10:11 | CP.PCM.PN ---
Subjective - Date & Time of Evaluation Date of Evaluation: 01/18/18 Time of Evaluation: 09:00 - Subjective Subjective: PGY 3 Medicine progress note for Dr. Quesada: Patient seen and examined at bedside this morning. No acute events overnight. Patient admits to chest pain that comes and goes. He was sitting up on the side of bed about to eat his breakfast. Objective - Vital Signs/Intake and Output Vital Signs (last 24 hours): Temp Pulse Resp BP Pulse Ox 97.6 F 80 20 165/67 H 96 01/18/18 07:10 01/18/18 08:00 01/18/18 07:10 01/18/18 07:10 01/18/18 07:10 Intake and Output: 01/18/18 01/18/18 06:59 18:59 Intake Total 120 Balance 120 - Medications Medications: Current Medications Albuterol/Ipratropium (Duoneb 3 Mg/0.5 Mg (3 Ml) Ud) 3 ml INH RQ6 PRN PRN Reason: Shortness of Breath Stop: 01/22/18 17:46 Last Admin: 01/18/18 07:15 Dose: 3 ml Aspirin (Aspirin Chewable) 81 mg PO DAILY [facility] Last Admin: 01/18/18 09:53 Dose: 81 mg Diltiazem HCl (Cardizem) 30 mg PO QID [facility] Last Admin: 01/18/18 09:53 Dose: 30 mg Enoxaparin Sodium (Lovenox) 40 mg SC DAILY [facility] Last Admin: 01/18/18 09:57 Dose: 40 mg Fluticasone/Vilanterol (Breo Ellipta 100-25 Mcg Inh) 1 puff INH RQD [facility] Last Admin: 01/18/18 07:15 Dose: Not Given Losartan Potassium (Cozaar) 50 mg PO DAILY [facility] Stop: 01/22/18 20:00 Last Admin: 01/18/18 09:54 Dose: 50 mg Nicotine (Nicoderm Cq) 1 patch TD DAILY [facility] Last Admin: 01/17/18 09:32 Dose: 1 patch Pantoprazole Sodium (Protonix Ec Tab) 40 mg PO DAILY [facility] Stop: 01/22/18 10:00 Last Admin: 01/18/18 09:55 Dose: 40 mg Pneumococcal Polyvalent Vaccine (Pneumovax 23 Vaccine) 0.5 ml IM .ONCE ONE Stop: 01/18/18 12:01 Rosuvastatin Calcium (Crestor) 2.5 mg PO HS [facility] Tiotropium [place] (Spiriva) 18 mcg INH RQ24 [facility] Last Admin: 01/18/18 07:15 Dose: 18 mcg - Labs Labs: 01/18/18 08:39 01/18/18 08:39 PT 11.7 SECONDS (9.7-12.2) 01/16/18 14:45 INR 1.1 01/16/18 14:45 APTT 36 SECONDS (21-34) H 01/16/18 14:45 - Constitutional Appears: Non-toxic, No Acute Distress - Head Exam Head Exam: NORMAL INSPECTION - Eye Exam Eye Exam: EOMI, PERRL Pupil Exam: NORMAL ACCOMODATION - ENT Exam ENT Exam: Mucous Membranes Moist - Respiratory Exam Respiratory Exam: Clear to Ausculation Bilateral, NORMAL BREATHING PATTERN. absent: Accessory Muscle Use, Prolonged Expiratory Phase, Respiratory Distress - Cardiovascular Exam Cardiovascular Exam: REGULAR RHYTHM, +S1, +S2 - GI/Abdominal Exam GI & Abdominal Exam: Soft, Normal Bowel Sounds. absent: Distended, Firm, Guarding, Tenderness - Extremities Exam Extremities Exam: Normal Inspection - Back Exam Back Exam: NORMAL INSPECTION. absent: CVA tenderness (L), CVA tenderness (R), paraspinal tenderness - Neurological Exam Neurological Exam: Alert, Awake, CN II-XII Intact, Normal Gait, Oriented x3 Neuro motor strength exam: Left Upper Extremity: 5, Right Upper Extremity: 5, Left Lower Extremity: 5, Right Lower Extremity: 5 - Psychiatric Exam Psychiatric exam: Normal Affect, Normal Mood - Skin Skin Exam: Normal Color Assessment and Plan - Assessment and Plan (Free Text) Assessment: 72 y/o male with PMHx of Afib, HTN, HLD, COPD, gout, and PAD presented on 01/16 to the ED due to abnormal stress test by Dr. Trinh. Patient is currently on med tele and hemodynamically stable. Acute Coronary Disease, multi-vessel Cardiology consulted, Dr. Trinh - help appreciated Patient had cardiac cath 01/17: L main: Patent LAD: Mid 85%, Large Diag 80% L Cx: Distal 70% RCA: Distal 85% EF: 40%, anterolateral hypokinesis Will d/w Family tomorrow CABG Vs. Multi vessel PCI ROMIs negative Outpatient pharm stress test abnormal (EF of 31% and recommends ECHO) Aspirin 81 mg PO qd Losartan 100mg PO daily ProBNP 1220 (H) HbA1c 5.5 TSH and FT4 wnl Afib Rate controlled CHADS: 3, HASBLED: 2 Start Eliquis 2.5 mg PO BID Start Metoprolol 25 mg PO BID Cardizem 30 mg PO QID (hold SBP < 100, HR < 60) - discontinue Cardio Dr. Trinh on consult - help appreciated COPD Patient was a long time smoker and was not on any meds at home for COPD Spiriva 18 mcg inh qd Duonebs PRN Breo 100/[address] Gallego consulted due to abn'l CT chest, which was ordered due to abn'l CXR from the ED. CT 01/12 showed "gross granulomatous changes" in his upper lobes and RLL superior segment PAD Aspirin 81 mg PO qd SCDs contraindicated Will not add Plavix as patient will need CABG/stent placement Hypertension Cardizem 30 mg PO QID Losartan 50 mg PO daily Hyperlipidemia Crestor 10 mg PO HS Gout No acute flare f/u uric acid level consider allopurinol for management/prevention Tobacco Use Disorder Smoking cessation advised and discussed Nicotine patch Prophylactic Measures Lovenox 40 mg SC daily (SCDs contraindicated due to PAD) PT/OT Code: FULL *POC: Kalpana Zelaya () - only speaks Burkinan. But she can call Thy who speaks Macedonian at [phone]. Dispo -> tomorrow Pricilla Pires DO PGY 3 *All management and orders per Dr. Quesada
[2018-01-18] MEDS ORDERED: Pneumococcal 23-Valent Vaccine IM ONE (12:00)
[2018-01-18 15:57] VITALS: RESP 20
--- NOTE | 2018-01-18 16:54 | CP.PCM.PN ---
Subjective - Date & Time of Evaluation Date of Evaluation: 01/18/18 Time of Evaluation: 14:00 - Subjective Subjective: Patient seen and examined today at bedside. Patient resting comfortably in bed. He denies any shortness of breath, cough, nasal congestion, or any sputum production. Patient afebrile, and not in acute distress. Objective - Vital Signs/Intake and Output Vital Signs (last 24 hours): Temp Pulse Resp BP Pulse Ox 97.8 F 72 20 135/70 97 01/18/18 15:00 01/18/18 15:00 01/18/18 15:00 01/18/18 15:00 01/18/18 15:00 Intake and Output: 01/18/18 01/18/18 06:59 18:59 Intake Total 120 400 Balance 120 400 - Medications Medications: Current Medications Albuterol/Ipratropium (Duoneb 3 Mg/0.5 Mg (3 Ml) Ud) 3 ml INH RQ6 PRN PRN Reason: Shortness of Breath Stop: 01/22/18 17:46 Last Admin: 01/18/18 07:15 Dose: 3 ml Apixaban (Eliquis) 2.5 mg PO BID [facility] Aspirin (Aspirin Chewable) 81 mg PO DAILY [facility] Last Admin: 01/18/18 09:53 Dose: 81 mg Enoxaparin Sodium (Lovenox) 40 mg SC DAILY [facility] Last Admin: 01/18/18 09:57 Dose: 40 mg Fluticasone/Vilanterol (Breo Ellipta 100-25 Mcg Inh) 1 puff INH RQD [facility] Last Admin: 01/18/18 07:15 Dose: Not Given Losartan Potassium (Cozaar) 100 mg PO DAILY [facility] Stop: 01/22/18 20:00 Metoprolol Tartrate (Lopressor) 50 mg PO BID [facility] Nicotine (Nicoderm Cq) 1 patch TD DAILY [facility] Last Admin: 01/18/18 10:51 Dose: 1 patch Nitroglycerin (Nitrostat Sl Tab) 0.4 mg SL Q10M PRN PRN Reason: pain Pantoprazole Sodium (Protonix Ec Tab) 40 mg PO DAILY [facility] Stop: 01/22/18 10:00 Last Admin: 01/18/18 09:55 Dose: 40 mg Rosuvastatin Calcium (Crestor) 10 mg PO HS [facility] Tiotropium [place] (Spiriva) 18 mcg INH RQ24 [facility] Last Admin: 01/18/18 07:15 Dose: 18 mcg - Labs Labs: 01/18/18 08:39 01/18/18 08:39 PT 11.7 SECONDS (9.7-12.2) 01/16/18 14:45 INR 1.1 01/16/18 14:45 APTT 36 SECONDS (21-34) H 01/16/18 14:45 Assessment and Plan (1) Multiple lung nodules Status: Acute (2) COPD (chronic obstructive pulmonary disease) Status: Acute
[2018-01-18] MEDS ORDERED: Rosuvastatin Calcium 2.5 mg Tab PO SCH (22:00)
--- NOTE | 2018-01-18 22:33 | CP.PCM.PN ---
Subjective - Date & Time of Evaluation Date of Evaluation: 01/18/18 Time of Evaluation: 15:15 - Subjective Subjective: Patient seen and evaluated Denies chest pain and dyspnea Physical Exam - Constitutional Appears: Well Additional comments: Elderly male resting in bed in no acute distress. - Head Exam Head Exam: ATRAUMATIC, NORMAL INSPECTION - Eye Exam Eye Exam: EOMI, Normal appearance Pupil Exam: NORMAL ACCOMODATION - ENT Exam ENT Exam: Mucous Membranes Moist, Normal Exam - Neck Exam Neck exam: Positive for: Normal Inspection. Negative for: Lymphadenopathy - Respiratory Exam Respiratory Exam: NORMAL BREATHING PATTERN Additional comments: faint crackles LLL - Cardiovascular Exam Cardiovascular Exam: Irregular Rhythm Additional comments: Chest pain is NOT reproducible upon palpation - GI/Abdominal Exam GI & Abdominal Exam: Normal Bowel Sounds, Soft. absent: Tenderness - Extremities Exam Extremities exam: Positive for: calf tenderness, normal inspection. Negative for: pedal edema, tenderness - Back Exam Back exam: NORMAL INSPECTION - Neurological Exam Neurological exam: Alert, Oriented x3 - Psychiatric Exam Psychiatric exam: Normal Affect, Normal Mood - Skin Skin Exam: Dry, Intact, Normal Color, Warm Assessment & Plan - Assessment and Plan (Free Text) Assessment: 72 y/o male with PMHx of Afib, HTN, HLD, COPD, gout, and PAD presented to the ED due to abnormal stress test by Dr. Trinh. Patient is currently on med tele and hemodynamically stable. Acute coronary syndrome -ROMIs 9pm tonight and 4am 01/17 - trend trops and EKG then -pharm stress test abnormal (EF of 31% and recommends ECHO) -ECHO tomorrow AM on 01/17 -cardiac cath 3:30pm on 01/17 -NPO after breakfast 01/17 -tele monitor -aspirin 81 mg PO qd -stop lisinopril 2/2 abn'l EKG -proBNP, A1c, TSH, FT4 -lovenox 40 mg sq daily Afib -CHADS: 3, HASBLED: 2 -will hold AC until after cath; -start cardizem 30 mg PO QID (hold SBP < 100, HR < 60) -ECHO tomorrow AM on 01/17 COPD -patient long time smoker and currently not on home meds for COPD -Spiriva 18 mcg inh qd -duonebs PRN Abnormal CXR -CT chest w/o contrast -pulm Dr. Julián on consult PAD -aspirin 81 mg PO qd -SCDs contraindicated Gout -colchicine 0.3 mg PO qd HTN -patient with recent hx of headache; please monitor BP. BP not meeting HTN urgency/emergency criteria yet. Pending new meds for HTN mgmt as below: -start cardizem 30 mg PO QID -start losartan 50 mg PO qd Lipid disorder -lipid panel Ppx: lovenox 40 mg sq SCDs contrindicated PT/OT eval ordered Code: FULL CAD with triple vessel disease For CABG as out patient Objective - Vital Signs/Intake and Output Vital Signs (last 24 hours): Temp Pulse Resp BP Pulse Ox 97.8 F 74 20 168/92 H 98 01/18/18 15:00 01/18/18 21:41 01/18/18 15:00 01/18/18 21:41 01/18/18 21:41 Intake and Output: 01/18/18 01/19/18 18:59 06:59 Intake Total 400 Balance 400 - Medications Medications: Current Medications Albuterol/Ipratropium (Duoneb 3 Mg/0.5 Mg (3 Ml) Ud) 3 ml INH RQ6 PRN PRN Reason: Shortness of Breath Stop: 01/22/18 17:46 Last Admin: 01/18/18 07:15 Dose: 3 ml Apixaban (Eliquis) 2.5 mg PO BID [facility] Last Admin: 01/18/18 17:33 Dose: 2.5 mg Aspirin (Aspirin Chewable) 81 mg PO DAILY [facility] Last Admin: 01/18/18 09:53 Dose: 81 mg Fluticasone/Vilanterol (Breo Ellipta 100-25 Mcg Inh) 1 puff INH RQD [facility] Last Admin: 01/18/18 07:15 Dose: Not Given Losartan Potassium (Cozaar) 100 mg PO DAILY [facility] Stop: 01/22/18 20:00 Metoprolol Tartrate (Lopressor) 25 mg PO BID [facility] Nicotine (Nicoderm Cq) 1 patch TD DAILY [facility] Last Admin: 01/18/18 10:51 Dose: 1 patch Nitroglycerin (Nitrostat Sl Tab) 0.4 mg SL Q10M PRN PRN Reason: pain Last Admin: 01/18/18 17:33 Dose: 0.4 mg Pantoprazole Sodium (Protonix Ec Tab) 40 mg PO DAILY [facility] Stop: 01/22/18 10:00 Last Admin: 01/18/18 09:55 Dose: 40 mg Rosuvastatin Calcium (Crestor) 10 mg PO HS [facility] Last Admin: 01/18/18 21:08 Dose: 10 mg Tiotropium [place] (Spiriva) 18 mcg INH RQ24 [facility] Last Admin: 01/18/18 07:15 Dose: 18 mcg - Labs Labs: 01/18/18 08:39 01/18/18 08:39 PT 11.7 SECONDS (9.7-12.2) 01/16/18 14:45 INR 1.1 01/16/18 14:45 APTT 36 SECONDS (21-34) H 01/16/18 14:45
--- NOTE | 2018-01-19 07:13 | CP.PCM.PN ---
Subjective - Date & Time of Evaluation Date of Evaluation: 01/19/18 Time of Evaluation: 08:00 - Subjective Subjective: PGY 3 Medicine progress note for Dr. Quesada: Patient seen and examined at bedside this morning. No acute events overnight. Patient admits to chest pain that comes and goes. He was sitting up on the side of bed about to eat his breakfast. Family was at bedside this morning. No sings of bleeding after starting the Eliquis. Discharge instructions were explained to the patient with Uzbek in demand video translation. His daughter was presents at bedside for this explanation. All questions were answered. Objective - Vital Signs/Intake and Output Vital Signs (last 24 hours): Temp Pulse Resp BP Pulse Ox 97.6 F 92 H 20 167/91 H 100 01/19/18 04:30 01/19/18 04:30 01/19/18 04:30 01/19/18 04:30 01/19/18 04:30 - Medications Medications: Current Medications Albuterol/Ipratropium (Duoneb 3 Mg/0.5 Mg (3 Ml) Ud) 3 ml INH RQ6 PRN PRN Reason: Shortness of Breath Stop: 01/22/18 17:46 Last Admin: 01/18/18 07:15 Dose: 3 ml Apixaban (Eliquis) 2.5 mg PO BID [facility] Last Admin: 01/18/18 17:33 Dose: 2.5 mg Aspirin (Aspirin Chewable) 81 mg PO DAILY [facility] Last Admin: 01/18/18 09:53 Dose: 81 mg Fluticasone/Vilanterol (Breo Ellipta 100-25 Mcg Inh) 1 puff INH RQD [facility] Last Admin: 01/18/18 07:15 Dose: Not Given Losartan Potassium (Cozaar) 100 mg PO DAILY [facility] Stop: 01/22/18 20:00 Metoprolol Tartrate (Lopressor) 25 mg PO BID [facility] Nicotine (Nicoderm Cq) 1 patch TD DAILY [facility] Last Admin: 01/18/18 10:51 Dose: 1 patch Nitroglycerin (Nitrostat Sl Tab) 0.4 mg SL Q10M PRN PRN Reason: pain Last Admin: 01/18/18 17:33 Dose: 0.4 mg Pantoprazole Sodium (Protonix Ec Tab) 40 mg PO DAILY [facility] Stop: 11/03/18 10:00 Last Admin: 01/18/18 09:55 Dose: 40 mg Rosuvastatin Calcium (Crestor) 10 mg PO HS [facility] Last Admin: 01/18/18 21:08 Dose: 10 mg Tiotropium [place] (Spiriva) 18 mcg INH RQ24 [facility] Last Admin: 01/18/18 07:15 Dose: 18 mcg - Labs Labs: 01/18/18 08:39 01/18/18 08:39 PT 11.7 SECONDS (9.7-12.2) 01/16/18 14:45 INR 1.1 01/16/18 14:45 APTT 36 SECONDS (21-34) H 01/16/18 14:45 - Constitutional Appears: Non-toxic, No Acute Distress - Head Exam Head Exam: NORMAL INSPECTION - Eye Exam Eye Exam: EOMI Pupil Exam: NORMAL ACCOMODATION - ENT Exam ENT Exam: Mucous Membranes Moist - Respiratory Exam Respiratory Exam: Clear to Ausculation Bilateral, NORMAL BREATHING PATTERN - Cardiovascular Exam Cardiovascular Exam: Irregular Rhythm, +S1, +S2 - GI/Abdominal Exam GI & Abdominal Exam: Soft, Normal Bowel Sounds. absent: Tenderness - Extremities Exam Extremities Exam: Normal Inspection - Neurological Exam Neurological Exam: Alert, Awake, CN II-XII Intact, Normal Gait, Oriented x3 Neuro motor strength exam: Left Upper Extremity: 5, Right Upper Extremity: 5, Left Lower Extremity: 5, Right Lower Extremity: 5 - Psychiatric Exam Psychiatric exam: Normal Affect, Normal Mood Assessment and Plan - Assessment and Plan (Free Text) Assessment: Patient is stable for discharge home. Patient is to take the following medications: 1. Metoprolol 25 mg one by mouth twice a day 2. Eliquis 2.5 mg one by mouth twice a day 3. Aspirin 81mg by mouth once day 4. Breo 100/25 one puff inhaled once a day 5. Crestpr 10 mg on by mouth at bedtime/night 6. Spiriva 18mcg one inhaled at bedtime 7. Nicotine patch - apply one patch daily 8. Nitroglycerin 0.4 mg - to take only if needed for chest pain. He can take one every ten minutes only as needed for chest pain. He can take up to 3. If he needs more because the chest pain is bad he should call 911 and come to the emergency room. Patient is to stop smoking. Patient is to follow up in the office of Dr. Trinh tomorrow Jan 20 at 4:00 PM. He is to discuss options of bypass surgery or cardiac stent placement. All instruction explained to the patient in his language and the patient agrees with the plan. Family is present at bedside to take the patient home. If the chest pain returns the patient is to go straight to the emergency room.
[2018-01-19] MEDS: Fluticasone-Vilanterol 100/25mcg Diskus INH SCH (07:20)
[2018-01-19] MEDS: Tiotropium 18 mcg Cap For Inhalation INH SCH (07:20)
[2018-01-19] MEDS: Albuterol-Ipratrop 3 mg / 0.5 (3 ml) UD INH PRN (07:22)
[2018-01-19 07:37] LABS: BASO # 0.1 K/uL (0.0-0.2); BASO % 0.6 % (0.0-2.0); EOS # 0.8 K/uL (0.0-0.7); EOS % 6.2 % (0.0-4.0); HEMOGLOBIN 15.2 g/dL (12.0-18.0); LYMPH # 1.6 K/uL (1.0-4.3); LYMPH % 12.9 % (20.0-40.0); MEAN CELL VOLUME 90.6 fL (80.0-94.0); MEAN CORPUSCULAR HEMOGLOBIN 30.6 pg (27.0-31.0); MEAN CORPUSCULAR HGB CONC 33.8 g/dL (33.0-37.0); MEAN PLATELET VOLUME 9.7 fL (7.2-11.7); MONO # 1.1 K/uL (0.0-0.8); MONO % 9.3 % (0.0-10.0); NEUT # 8.8 K/uL (1.8-7.0); NRBC % 0.1 % (0.0-2.0); RBC 4.95 Mil/uL (4.40-5.90); RED CELL DISTRIBUTION WIDTH 13.7 % (11.5-14.5); WHITE BLOOD COUNT 12.4 K/uL (4.8-10.8)
[2018-01-19 08:17] LABS: ALB/GLOB RATIO 1.3 (1.0-2.1); ALBUMIN 4.3 g/dL (3.5-5.0); ALT/SGPT 36 U/L (21-72); AST/SGOT 25 U/L (17-59); BLOOD UREA NITROGEN 16 mg/dL (9-20); CALCIUM 9.4 mg/dl (8.6-10.4); GFR NON-AFRICAN AMERICAN > 60; URIC ACID 8.8 mg/dL (3.5-8.5)
[2018-01-19 08:54] VITALS: TEMP 98.4
[2018-01-19 10:45] VITALS: BP 146/77; PULSE 71
[2018-01-19] MEDS: Pantoprazole 40 mg EC Tab PO SCH (10:51)
--- NOTE | 2018-01-19 22:52 | CP.PCM.PN ---
Subjective - Date & Time of Evaluation Date of Evaluation: 01/19/18 Time of Evaluation: 10:05 - Subjective Subjective: Patient seen and examined. Denies chest pain and dyspnea Physical Examination - Constitutional Appears: Non-toxic, No Acute Distress - Head Exam Head Exam: NORMAL INSPECTION - Eye Exam Eye Exam: EOMI Pupil Exam: NORMAL ACCOMODATION - ENT Exam ENT Exam: Mucous Membranes Moist - Respiratory Exam Respiratory Exam: Clear to Ausculation Bilateral, NORMAL BREATHING PATTERN - Cardiovascular Exam Cardiovascular Exam: Irregular Rhythm, +S1, +S2 - GI/Abdominal Exam GI & Abdominal Exam: Soft, Normal Bowel Sounds. absent: Tenderness - Extremities Exam Extremities Exam: Normal Inspection - Neurological Exam Neurological Exam: Alert, Awake, CN II-XII Intact, Normal Gait, Oriented x3 Neuro motor strength exam: Left Upper Extremity: 5, Right Upper Extremity: 5, Left Lower Extremity: 5, Right Lower Extremity: 5 - Psychiatric Exam Psychiatric exam: Normal Affect, Normal Mood Assessment and Plan - Assessment and Plan (Free Text) Assessment: Patient is stable for discharge home. Patient is to take the following medications: 1. Metoprolol 25 mg one by mouth twice a day 2. Eliquis 2.5 mg one by mouth twice a day 3. Aspirin 81mg by mouth once day 4. Breo 100/25 one puff inhaled once a day 5. Crestpr 10 mg on by mouth at bedtime/night 6. Spiriva 18mcg one inhaled at bedtime 7. Nicotine patch - apply one patch daily 8. Nitroglycerin 0.4 mg - to take only if needed for chest pain. He can take one every ten minutes only as needed for chest pain. He can take up to 3. If he needs more because the chest pain is bad he should call 911 and come to the emergency room. Patient is to stop smoking. Patient is to follow up my office tomorrow Jan 20 at 4:00 PM. He is to discuss options of bypass surgery or cardiac stent placement. All instruction explained to the patient in his language and the patient agrees with the plan. Family is present at bedside to take the patient home. If the chest pain returns the patient is to go straight to the emergency room. Objective - Vital Signs/Intake and Output Vital Signs (last 24 hours): Temp Pulse Resp BP Pulse Ox 98.4 F 71 20 146/77 96 01/19/18 07:20 01/19/18 10:44 10/31/18 07:20 01/19/18 10:44 01/19/18 07:20 - Labs Labs: 01/19/18 07:23 01/19/18 07:23 PT 11.7 SECONDS (9.7-12.2) 01/16/18 14:45 INR 1.1 01/16/18 14:45 APTT 36 SECONDS (21-34) H 01/16/18 14:45
--- NOTE | 2018-01-20 11:03 | PQF ---
PROVIDER RESPONSE TEXT: Provider was unable to determine a response for this query. REVIEWER QUERY TEXT: COPD Specificity COPD - Chronic Obstructive Pulmonary Disease is documented in the Medical Record. Please specify the associated condition (includes suspected or probable) Such as: -- Bronchitis - acute -- Asthmatic - with /without status asthmaticus -- Exacerbation - acute -- Lower respiratory infection - acute -- Other, please specify The patient's Clinical Indicators include: Patient with history of COPD, having intermittent chest pain and exertional dyspnea/fatigue for the p ast 1 month. CXR: Limited right perihilar infiltrate difficult to exclude. Multifocal partially nodular pleural plaques suspected bilaterally. CT ANGIO CHEST PE PROTOCOL: 1. No CT evidence of pulmonary embolus. 2. Gross granulomatous changes bilateral upper lobes and right lower lobe superior segment. 3. Limited bronchiectasis right middle lobe. Respiratory: Positive for: Shortness of Breath, SOB with Excertion. Respiratory: Rales (B/L bases R>L), No Rhonchi, No Wheezing. Query created by: Sampson Zee on 01/17/2018 2:58 PM Electronically signed by: Cristina Keith MD 01/20/2018 11:00 AM
--- NOTE | 2018-01-22 08:02 | CARDCATH ---
PROCEDURE DATE: 01/17/2018 PROCEDURES: 1. Left heart catheterization. 2. Coronary angiogram. CLINICAL INDICATION: 1. Exertional angina. 2. Abnormal stress test. 3. Hypertension. 4. Hyperlipidemia. 5. Atrial fibrillation. REFERRING PHYSICIAN: Gisele Quesada MD PERFORMING PHYSICIAN: Jamir Trinh MD PROCEDURE: After informed consent, patient was prepped and draped in the usual sterile fashion. A 2% lidocaine was given in the right groin for local anesthesia. Using micropuncture technique, 6-[place] sheath was introduced into right common femoral artery. A 6-[place] JL4 diagnostic catheter was engaged into left main coronary artery. Contrast injected and left coronary angiogram was done. Then, the catheter was exchanged to 6-[place] JR4 diagnostic catheter. Contrast injected and right coronary angiogram was done. Then, the JR4 diagnostic catheter crossing the left ventricle across the aortic valve. LV end diastolic pressure measured. Contrast injected and LV angiogram was done. Then, the catheter was pulled back across the aortic valve. Gradient across the aortic valve was measured. The patient tolerated the procedure well. Postprocedure, Mynx closure device applied with excellent hemostasis. Radiological supervision and radiological interpretation of coronary imaging was done. FINDINGS: 1. Left main coronary artery is patent. 2. Proximal LAD is patent. The patient has a very large diagonal artery. The patient has a Narayan type 0,1,1 type of bifurcation lesion. Mid LAD has a long 85% stenosis. Large diagonal artery has a proximal 80% stenosis. Mid has a 70% stenosis. 3. Left circumflex is a codominant system. Distal left circumflex has a 70% eccentric stenosis. Obtuse marginal branches are patent. 4. Right coronary artery is a codominant system. Distal right coronary artery has 85% concentric stenosis. 5. LV ejection fraction is approximately 40% to 45% and anterolateral wall hypokinetic. EDP is 12. No gradient across the aortic valve. IMPRESSION: 1. Triple vessel coronary artery disease as described above. 2. Mildly decreased left ventricular systolic function. 3. The patient has atrial fibrillation requiring anticoagulation. RECOMMENDATIONS: Since the patient has a triple vessel disease and has atrial fibrillation and also bifurcation lesion, recommend coronary artery bypass could be repeated. Jamir Trinh MD
[2018-01-23 20:06] VITALS: O2SAT 97
== END 2018-01-19 13:13 | disposition home or self-care (01) | DRG 286 ==
LOC: C.ER 14:07 → C.9E 15:39 → C.6T 15:48
PROVIDERS: ADMIT Internal Medicine; ATTEND Internal Medicine Pulmonary Disease
PROC: 4A023N7 Measurement of Cardiac Sampling and Pressure, Left Heart, Percutaneous Approach (ICD-10-PCS; principal; 2018-01-17)
PROC: B2151ZZ Fluoroscopy of Left Heart using Low Osmolar Contrast (ICD-10-PCS; 2018-01-17)
PROC: B2111ZZ Fluoroscopy of Multiple Coronary Arteries using Low Osmolar Contrast (ICD-10-PCS; 2018-01-17)
DX: I25.119 Atherosclerotic heart disease of native coronary artery with unspecified angina pectoris (principal); I50.23 Acute on chronic systolic (congestive) heart failure; I24.9 Acute ischemic heart disease, unspecified; I11.0 Hypertensive heart disease with heart failure; J44.9 Chronic obstructive pulmonary disease, unspecified; I48.91 Unspecified atrial fibrillation; I73.9 Peripheral vascular disease, unspecified; R91.8 Other nonspecific abnormal finding of lung field; E78.5 Hyperlipidemia, unspecified; E78.00 Pure hypercholesterolemia, unspecified; M10.9 Gout, unspecified; F17.210 Nicotine dependence, cigarettes, uncomplicated; Z79.01 Long term (current) use of anticoagulants; Z79.899 Other long term (current) drug therapy